=== PATIENT | male | born 1940 | race Caucasian/White ===

== ENCOUNTER 2018-11-03 23:55 | Emergency (ER) | payer MEDICARE, OTHER ==
[2018-11-04 00:50] LABS: BASOPHIL % 0.4 % (0.0-0.4); Basophil (Absolute #) 0.02 (0-0.4); Eosinophil % 3.7 % (0.00-5.0); Granulocyte Absolute (ANC) 3.39 (1.4-6.9); Granulocytes % 61.9 % (36.0-66.0); Hematocrit 36.8 % (42-50); Lymphocyte (Absolute #) 1.02 (1.0-4.6); Lymphocytes % 18.6 % (24.0-44.0); Mean Cell Volume 92.2 fl (78-100); Mean Corpuscular Hgb Concent. 32.6 g/dl (32-36); Mean Platelet Volume 9.7 fl (6-9.5); Monocyte (Absolute #) 0.84 (0.0-1.3); Monocytes % 15.4 % (0.0-12.0); Platelet Count 179 K/mm3 (150-450); Red Blood Count 3.99 M/mm3 (4.1-5.6); Red Cell Distribution Width 13.1 % (11.5-14.0); White Blood Count 5.5 K/mm3 (4.0-10.5)
[2018-11-04 00:58] LABS: INR 2.37 (0.8-3.0); PROTIME 27.8 SECONDS (8.83-12.87)
[2018-11-04 01:01] LABS: PTT 38.1 SECONDS (24.1-36.1)
[2018-11-04 01:02] LABS: ALBUMIN 3.8 g/dL (3.5-5.0); ANION GAP 11.1 MEQ/L (5-15); BILIRUBIN,TOTAL 0.3 mg/dL (0.2-1.3); Calcium 9.2 mg/dL (8.4-10.2); Creatinine 1 1.42 mg/dL (0.66-1.25); Potassium 4.2 mmol/L (3.5-5.1); Total Protein 6.9 g/dL (6.3-8.2)
--- NOTE | 2018-11-04 01:34 | ERPHSYRPT ---
- History of Present Illness Time Seen by Provider: 11/04/18 00:14 Source: patient Exam Limitations: no limitations Patient Subjective Stated Complaint: pt sttes he had teeth pulled 1 week ago on sunday and has had bleeding this evening that he cant get to stop Triage Nursing Assessment: pt alert and oriented, answers questions approp. pt ambulatoryw ith steady gait noted. respirations nonlabored. skin pink warm and dry. cot noted to lt upper gum. Physician History: Pt had tooth extraction 1 week ago, his left upper molar was removed. He was instructed to restart his Xarelto 2 days later. He started bleeding from the gum this afternoon. He denies severe bleeding, he stopped few times with pressure, but restarted again few hours ago. He denies any pain, fever, nausea, chest pain, other complaints. Timing/Duration: gradual onset Severity: mild ENT Location: dental Prearrival Treatment: no prearrival treatment Modifying Factors: Improves With: nothing Associated Symptoms: denies symptoms Allergies/Adverse Reactions: No Known Drug Allergies Allergy (Verified 11/04/18 00:13) Home Medications: Ascorbate Calcium [Vitamin C] 500 mg PO DAILY 01/13/14 [History] Aspirin 81 mg PO DAILY 01/13/14 [History] Calcium 600 mg PO DAILY 01/13/14 [History] Hydrocodone/APAP 10/325 mg [[place] 10/325 MG Tablet] 1 tab PO BID 01/13/14 [History] Lisinopril 20 mg PO DAILY 01/13/14 [History] Metoprolol Succinate [Toprol Xl] 25 mg PO DAILY 01/13/14 [History] Multivitamin [Multivitamins] 1 tab PO DAILY 01/13/14 [History] Naproxen 250 mg PO BID 01/13/14 [History] clonazePAM [Klonopin] 1 mg PO DAILY 01/13/14 [History] Hx Tetanus, Diphtheria Vaccination/Date Given: Yes Hx Influenza Vaccination/Date Given: No Hx Pneumococcal Vaccination/Date Given: No Immunizations Up to Date: Yes - Review of Systems Constitutional: No Symptoms Eyes: No Symptoms Ears, Nose, & Throat: Other (gum bleeding ( post extraction)) Respiratory: No Symptoms Cardiac: No Symptoms Abdominal/Gastrointestinal: No Symptoms Genitourinary Symptoms: No Symptoms Musculoskeletal: No Symptoms Skin: No Symptoms Neurological: No Symptoms All Other Systems: Reviewed and Negative - Past Medical History Pertinent Past Medical History: Yes Neurological History: No Pertinent History ENT History: No Pertinent History Cardiac History: Deep Vein Thrombosis, Hypertension Respiratory History: No Pertinent History Endocrine Medical History: No Pertinent History Musculoskeletal History: Arthritis GI Medical History: Colitis History: No Pertinent History Psycho-Social History: Anxiety Male Reproductive Disorders: No Pertinent History Other Medical History: ANKYLSOSIS SPONDIALYTIS. blood clot in lt leg yr ago - Past Surgical History Past Surgical History: Yes Neuro Surgical History: No Pertinent History Cardiac: No Pertinent History Respiratory: No Pertinent History Gastrointestinal: Cholecystectomy Genitourinary: No Pertinent History Musculoskeletal: No Pertinent History, Orthopedic Surgery Male Surgical History: No Pertinent History - Social History Smoking Status: Never smoker Exposure to second hand smoke: No Drug Use: none Patient Lives Alone: Yes - Nursing Vital Signs Nursing Vital Signs: Initial Vital Signs Temperature 97.7 F 11/04/18 00:02 Pulse Rate 85 11/04/18 00:02 Respiratory Rate 16 11/04/18 00:02 Blood Pressure 155/84 11/04/18 00:02 O2 Sat by Pulse Oximetry 99 11/04/18 00:02 Pain Scale Pain Intensity 0 - Physical Exam General Appearance: no apparent distress Eye Exam: bilateral eye: PERRL Nasal Exam: normal inspection Throat Exam: normal (left upper molar removed, there is slight bloody oozing from the socket, with a small clot in the bottom, no severe bleeding or ulceration. No edema.), pharynx normal Neck Exam: normal inspection, non-tender, supple, trachea midline, No JVD Cardiovascular/Respiratory Exam: chest non-tender, normal breath sounds, heart sounds normal, no JVD Abdominal Exam: non-tender Neurologic Exam: alert, oriented x 3, normal mood/affect Skin Exam: normal color, warm, dry SpO2 Interpretation: normal SpO2: 97 O2 Delivery: Room Air - Course Nursing assessment & vital signs reviewed: Yes Ordered Tests: Active Orders 24 hr Category Date Time Status CBC W DIFF Stat Lab 11/04/18 00:44 Completed CMP Stat Lab 11/04/18 00:44 Completed PROTIME WITH INR Stat Lab 11/04/18 00:44 Completed PTT Stat Lab 11/04/18 00:44 Completed Lab/Rad Data: Laboratory Result Diagrams 11/04/18 00:44 11/04/18 00:44 Laboratory Results 11/04/18 11/04/18 11/04/18 Range/Units 00:44 00:44 00:44 WBC 5.5 (4.0-10.5) K/mm3 RBC 3.99 L (4.1-5.6) M/mm3 Hgb 12.0 L (12.5-18.0) gm/dl Hct 36.8 L (42-50) % MCV 92.2 (78-100) fl MCH 30.0 (26-32) pg MCHC 32.6 (32-36) g/dl RDW 13.1 (11.5-14.0) % Plt Count 179 (150-450) K/mm3 MPV 9.7 H (6-9.5) fl Gran % 61.9 (36.0-66.0) % Eos # (Auto) 0.20 (0-0.5) Absolute Lymphs (auto) 1.02 (1.0-4.6) Absolute Monos (auto) 0.84 (0.0-1.3) Lymphocytes % 18.6 L (24.0-44.0) % Monocytes % 15.4 H (0.0-12.0) % Eosinophils % 3.7 (0.00-5.0) % Basophils % 0.4 (0.0-0.4) % Absolute Granulocytes 3.39 (1.4-6.9) Basophils # 0.02 (0-0.4) PT 27.8 H (8.83-12.87) SECONDS INR 2.37 (0.8-3.0) APTT 38.1 H (24.1-36.1) SECONDS Sodium 140 (137-145) mmol/L Potassium 4.2 (3.5-5.1) mmol/L Chloride 108 H (98-107) mmol/L Carbon Dioxide 25 (22-30) mmol/L Anion Gap 11.1 (5-15) MEQ/L BUN 26 H (9-20) mg/dL Creatinine 1.42 H (0.66-1.25) mg/dL Estimated GFR 51.4 ML/MIN Glucose 99 (74-106) mg/dL Calcium 9.2 (8.4-10.2) mg/dL Total Bilirubin 0.30 (0.2-1.3) mg/dL AST 21 (17-59) U/L ALT 15 (0-50) U/L Alkaline Phosphatase 50 (38-126) U/L Serum Total Protein 6.9 (6.3-8.2) g/dL Albumin 3.8 (3.5-5.0) g/dL - Progress Progress: improved Progress Note: 11/04/18 01:34 We stopped the bleeding with wet jose bag, and gauze pressure, pt is comfortable , denies any pain or difficulty breathing, will discharge him to keep pressure in bleeding area, when bleeding again and call his dentist in the morning. Counseled pt/family regarding: lab results, diagnosis, need for follow-up - Departure Departure Disposition: Home Clinical Impression: Gums, bleeding Condition: Stable Critical Care Time: No Referrals: MAURA LONDON MD [Primary Care Provider] - Instructions: Tooth Extraction (DC), Bleeding Gums (DC) Additional Instructions: Keep wet jose bag and gauze pressure on bleeding area as needed for bleeding, and follow up with your dentist today, return if severe pain, bleeding, vomiting or fever> 102 F!
[2018-11-04 02:31] VITALS: BP 138/76; PULSE 74; O2SAT 96
== END 2018-11-04 02:38 | disposition home or self-care (01) ==
LOC: ED 23:55
DX: K06.8 Other specified disorders of gingiva and edentulous alveolar ridge (principal); Z79.899 Other long term (current) drug therapy; Z86.718 Personal history of other venous thrombosis and embolism; F41.9 Anxiety disorder, unspecified; M19.90 Unspecified osteoarthritis, unspecified site
CPT/HCPCS: 36415; 80053; 85025; 85610; 85730; 99283

== ENCOUNTER 2021-05-21 20:04 | Emergency (ER) | payer MEDICARE, OTHER ==
[2021-05-21] MEDS ORDERED: Sodium Chloride 0.9% 500 ML 500 ML IV ONE ×2 (20:36→21:00)
[2021-05-21] MEDS ORDERED: Zofran 4 MG/2 ML VIAL IV ONE (20:37)
[2021-05-21] MEDS ORDERED: SUBLIMAZE 100 MCG/2 ML IV ONE (20:37)
[2021-05-21] MEDS ORDERED: Zofran 4 MG/2 ML VIAL ONE (20:59)
[2021-05-21] MEDS ORDERED: SUBLIMAZE 100 MCG/2 ML ONE (20:59)
[2021-05-21 21:06] LABS: Absolute Neutrophil Ct (ANC) 5.88 (1.4-6.9); BASOPHIL % 0.3 % (0.0-0.4); Basophil (Absolute #) 0.02 (0-0.4); Eosinophil % 3.5 % (0.00-5.0); Eosinophil (Absolute #) 0.28 (0-0.5); Hematocrit 41.5 % (42-50); Hemoglobin 13.8 gm/dl (12.5-18.0); Lymphocyte (Absolute #) 0.91 (1.0-4.6); Lymphocytes % 11.5 % (24.0-44.0); Mean Cell Volume 94.3 fl (78-100); Mean Corpuscular Hemoglobin 31.4 pg (26-32); Mean Corpuscular Hgb Concent. 33.3 g/dl (32-36); Mean Platelet Volume 9.4 fl (7.5-11.0); Monocyte (Absolute #) 0.82 (0.0-1.3); Monocytes % 10.4 % (0.0-12.0); Neutrophil % 74.3 % (36.0-66.0); Platelet Count 203 K/mm3 (150-450); Red Cell Distribution Width 12.2 % (11.5-14.0); White Blood Count 7.9 K/mm3 (4.0-10.5)
[2021-05-21 21:17] LABS: ANION GAP 11.6 MEQ/L (5-15); BILIRUBIN,TOTAL 0.5 mg/dL (0.2-1.3); Calcium 9.2 mg/dL (8.4-10.2); Creatinine 1 1.43 mg/dL (0.66-1.25); EST GLOMERULAR FILTRATION RATE 50.7 ML/MIN; Potassium 4.2 mmol/L (3.5-5.1); Total Protein 6.9 g/dL (6.3-8.2)
[2021-05-21 21:21] LABS: Appearance CLEAR (CLEAR); Bilirubin NEGATIVE (NEGATIVE); Blood NEGATIVE Ery/ul (0-5); Glucose NEGATIVE (NEGATIVE); Ketones NEGATIVE (NEGATIVE); Leukocyte Esterase NEGATIVE (NEGATIVE); Nitrite NEGATIVE (NEGATIVE); Protein,Urine Dip 30 (Negative); Specific Gravity 1.014 (1.005-1.025); Urobilinogen NEGATIVE mg/dL (0-1); WBC 0-2 /HPF (0-5)
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
[2021-05-21] MEDS ORDERED: Adacel Vial IM ONE ×2 (22:52→22:54)
[2021-05-21 22:58] VITALS: O2SAT 98
[2021-05-21 23:18] VITALS: BP 148/76; PULSE 98
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
== END 2021-05-21 23:07 | disposition home or self-care (01) ==
LOC: ED 20:04
DX: R10.12 Left upper quadrant pain (principal); M70.72 Other bursitis of hip, left hip; S20.212A Contusion of left front wall of thorax, initial encounter; V89.2XXA Person injured in unspecified motor-vehicle accident, traffic, initial encounter; Y93.89 Activity, other specified; Y92.89 Other specified places as the place of occurrence of the external cause
CPT/HCPCS: 36000; 36415; 71260; 74177; 80053; 81001; 83690; 84484; 85025; 90471; 90715; 93005; 96360; 96374; 96375; 99285; J2405; J3010

== ENCOUNTER 2022-07-21 17:22 | Emergency (ER) | payer MEDICARE, OTHER ==
--- NOTE | 2022-07-21 17:37 | ERPHSYRPT ---
- History of Present Illness Time Seen by Provider: 07/21/22 17:37 Source: patient Exam Limitations: no limitations Physician History: This is an 82-year-old white male patient of Dr. London who presents with high blood pressure reading for the last 2 days. He denies headache. He denies visual changes. Patient has been off his lisinopril/HCTZ until approximately 2 days ago when he started back on lisinopril 10 mg q. morning. He also takes metoprolol in the mornings as well. Patient called the pharmacy that he picks the prescriptions up and the pharmacist told the patient to take another 10 mg lisinopril orally. Patient denies chest pain and he denies shortness of breath. 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 He has not been coughing Timing/Duration: day(s) (2) Severity: mild (To moderate) Associated Symptoms: denies symptoms Allergies/Adverse Reactions: No Known Drug Allergies Allergy (Verified 07/21/22 17:38) Home Medications: Allopurinol 300 mg [Zyloprim 300 mg] 1 tab PO DAILY 07/21/22 [History] Colchicine 1 tab PO DAILY 07/21/22 [History] Hydrocodone/Acetaminophen [Hydrocodone-Acetamin 10-325 mg] 1 tab PO BID 07/21/22 [History] Latanoprost/Pf [Latanoprost 0.005% Eye Drop] 1 drop HS 07/21/22 [History] Lisinopril/Hydrochlorothiazide [Lisinopril-Hctz 10-12.5 mg Tab] 1 tab PO DAILY 07/21/22 [History] Metoprolol Succinate 50 mg [Toprol Xl 50 MG] 1 tab PO DAILY 07/21/22 [History] clonazePAM [Clonazepam] 1 tab PO DAILY 07/21/22 [History] Hx Tetanus, Diphtheria Vaccination/Date Given: No Hx Influenza Vaccination/Date Given: No Hx Pneumococcal Vaccination/Date Given: No Travel Risk - International Travel Have you traveled outside of the country in past 3 weeks: No - Coronavirus Screening Are you exhibiting any of the following symptoms?: No Close contact with a COVID-19 positive Pt in past 14-21 Days: No - Vaccine Status Have you recieved a Covid-19 vaccination: Yes [employer]: Pfizer - Vaccination Dates Date of 2cond Vaccination (if applicable): 08/2020 - Review of Systems Constitutional: No Symptoms Eyes: No Symptoms Ears, Nose, & Throat: No Symptoms Respiratory: No Symptoms Cardiac: No Symptoms Abdominal/Gastrointestinal: No Symptoms Genitourinary Symptoms: No Symptoms Musculoskeletal: No Symptoms Skin: No Symptoms Neurological: No Symptoms Psychological: Anxiety Endocrine: No Symptoms Hematologic/Lymphatic: No Symptoms Immunological/Allergic: No Symptoms All Other Systems: Reviewed and Negative - Past Medical History Pertinent Past Medical History: Yes Neurological History: No Pertinent History ENT History: No Pertinent History Cardiac History: Deep Vein Thrombosis, Hypertension Respiratory History: No Pertinent History Endocrine Medical History: No Pertinent History Musculoskeletal History: Arthritis GI Medical History: Colitis History: No Pertinent History Psycho-Social History: Anxiety Male Reproductive Disorders: No Pertinent History Other Medical History: ANKYLSOSIS SPONDIALYTIS. blood clot in lt leg yr ago - Past Surgical History Past Surgical History: Yes Neuro Surgical History: No Pertinent History Cardiac: No Pertinent History Respiratory: No Pertinent History Gastrointestinal: Cholecystectomy Genitourinary: No Pertinent History Musculoskeletal: No Pertinent History, Orthopedic Surgery Male Surgical History: No Pertinent History - Social History Smoking Status: Never smoker Exposure to second hand smoke: No Drug Use: none Patient Lives Alone: Yes - Nursing Vital Signs Nursing Vital Signs: Initial Vital Signs Temperature 98.1 F 07/21/22 17:38 Pulse Rate 107 H 07/21/22 17:38 Respiratory Rate 18 07/21/22 17:38 Blood Pressure 184/110 07/21/22 17:38 O2 Sat by Pulse Oximetry 98 07/21/22 17:38 Pain Scale Pain Intensity 0 - Physical Exam General Appearance: no apparent distress, alert, anxiety Eye Exam: PERRL/EOMI, eyes nml inspection Ears, Nose, Throat Exam: normal ENT inspection, moist mucous membranes Neck Exam: normal inspection, non-tender, supple, full range of motion Respiratory Exam: normal breath sounds, lungs clear, airway intact, No chest tenderness, No respiratory distress Cardiovascular Exam: tachycardia (Mild) Gastrointestinal/Abdomen Exam: soft, normal bowel sounds, No tenderness Rectal Exam: not done Back Exam: normal inspection, normal range of motion, No CVA tenderness, No vertebral tenderness Extremity Exam: normal inspection, normal range of motion, pelvis stable Neurologic Exam: alert, oriented x 3, cooperative, tape controlled machine stitcher II-XII nml as tested, normal mood/affect, nml cerebellar function, nml station & gait, sensation nml Skin Exam: normal color, warm, dry Lymphatic Exam: No adenopathy SpO2 Interpretation: normal O2 Delivery: Room Air - Course Nursing assessment & vital signs reviewed: Yes EKG Interpreted by Me: RATE (97), Sinus Rhythm, NORMAL INTERVALS, NORMAL QRS, Other (No acute ischemic changes on today's EKG. When compared to twelve-lead EKG dated 05/21/2021 there are no significant changes.) Ordered Tests: Active Orders 24 hr Category Date Time Status AMA [Release AMA] OM.NOW Care 07/21/22 19:37 Ordered EKG-ER Only STAT Care 07/21/22 17:54 Active IV Insertion STAT Care 07/21/22 17:54 Active Pulse Oximetry (ED) STAT Care 07/21/22 17:54 Active CBC W DIFF Stat Lab 07/21/22 18:15 Completed CMP Stat Lab 07/21/22 18:15 Completed MAGNESIUM Stat Lab 07/21/22 18:15 Completed NT PRO BNP Stat Lab 07/21/22 18:15 Completed TROPONIN Q4H Lab 07/21/22 18:15 Completed TROPONIN Q4H Lab 07/21/22 22:00 Ordered TROPONIN Q4H Lab 07/22/22 02:00 Ordered Medication Summary Discontinued Medications Generic Name Dose Route Start Last Admin Trade Name Freq PRN Reason Stop Dose Admin Labetalol HCl 10 mg 07/21/22 17:54 Labetalol Hcl 20 Mg/4 Ml Disp.Syringe IV 07/21/22 17:55 STAT ONE Lab/Rad Data: Laboratory Result Diagrams 07/21/22 18:15 07/21/22 18:15 Laboratory Results 07/21/22 07/21/22 07/21/22 Range/Units 18:15 18:15 18:15 WBC 9.5 (4.0-10.5) x10^3/uL RBC 3.99 L (4.1-5.6) x10^6/uL Hgb 12.6 (12.5-18.0) g/dL Hct 37.7 L (42-50) % MCV 94.5 (78-100) fL MCH 31.6 (26-32) pg MCHC 33.4 (32-36) g/dL RDW 13.8 (11.5-14.0) % Plt Count 209 (150-450) x10^3/uL MPV 9.5 (7.5-11.0) fL Gran % 75.8 H (36.0-66.0) % Immature Gran % (Auto) 0.4 (0.00-0.4) % Nucleat RBC Rel Count 0.0 (0.00-0.1) % Eos # (Auto) 0.15 (0-0.5) x10^3/uL Immature Gran # (Auto) 0.04 H (0.00-0.03) x10^3u/L Absolute Lymphs (auto) 1.14 (1.0-4.6) x10^3/uL Absolute Monos (auto) 0.93 (0.0-1.3) x10^3/uL Absolute Nucleated RBC 0.00 (0.00-0.01) x10^3u/L Lymphocytes % 12.0 L (24.0-44.0) % Monocytes % 9.8 (0.0-12.0) % Eosinophils % 1.6 (0.00-5.0) % Basophils % 0.4 (0.0-0.4) % Absolute Granulocytes 7.21 H (1.4-6.9) x10^3/uL Basophils # 0.04 (0-0.4) x10^3/uL Sodium 141 (137-145) mmol/L Potassium 4.0 (3.5-5.1) mmol/L Chloride 105 (98-107) mmol/L Carbon Dioxide 30 (22-30) mmol/L Anion Gap 9.5 (5-15) MEQ/L BUN 23 H (9-20) mg/dL Creatinine 1.03 (0.66-1.25) mg/dL Estimated GFR > 60.0 ML/MIN Glucose 131 H (74-106) mg/dL Calcium 9.1 (8.4-10.2) mg/dL Magnesium 1.6 (1.6-2.3) mg/dL Total Bilirubin 0.70 (0.2-1.3) mg/dL AST 44 (17-59) U/L ALT 27 (0-50) U/L Alkaline Phosphatase 78 (38-126) U/L Troponin I 1.380 H* (0.000-0.034) ng/mL NT-Pro-B Natriuret Pep 1290 (0-1800) pg/mL Serum Total Protein 7.6 (6.3-8.2) g/dL Albumin 3.9 (3.5-5.0) g/dL - Progress Progress: improved Progress Note: 07/21/22 19:38 Medical decision making: This patient has a significant elevated troponin. He states that he has not seen a roving teller in many years. He thinks it was a D r. Artie at the [facility] and he has retired. Patient states that he does not want to be admitted or transferred to a facility. He states he wants to "get through the holidays" then he will see his primary care doctor. He also stated that he does not have shortness of breath or chest pain at the time of this discharge. He was only concerned about his high blood pressure. Patient states that his is in [place] visiting family and that he will want her around before he goes into the hospital or is transferred to the hospital. Again, the patient states he has no chest pain at this time and he is not short of breath. His twelve-lead EKG today is unchanged from the twelve-lead EKG performed in April 2021. Patient understands there is a risk that he is having a evolving myocardial infarction. And he again is awake alert and oriented and understands that he could if he is discharged with an evolving and worsening myocardial infarction. He states that he will sign the AGAINST MEDICAL ADVICE form. He states that if his symptoms worsen, he will return to the emergency department. Counseled pt/family regarding: lab results, diagnosis - Departure Departure Disposition: AMA Clinical Impression: Hypertension, Elevated troponin I level Condition: Stable Critical Care Time: Yes Critical Care Time(excluding separately billable procedures): Critical 30-74 mins (40 minutes) Referrals: MAURA LONDON MD [Primary Care Provider] - Follow up/PCP as directed
[2022-07-21] MEDS ORDERED: TRANDATE 20 MG/4 ML SYRINGE IV ONE (17:54)
[2022-07-21 18:24] LABS: Absolute Neutrophil Ct (ANC) 7.21 x10^3/uL (1.4-6.9); Basophil (Absolute #) 0.04 x10^3/uL (0-0.4); Eosinophil % 1.6 % (0.00-5.0); Eosinophil (Absolute #) 0.15 x10^3/uL (0-0.5); Hematocrit 37.7 % (42-50); Hemoglobin 12.6 g/dL (12.5-18.0); Lymphocyte (Absolute #) 1.14 x10^3/uL (1.0-4.6); Mean Cell Volume 94.5 fL (78-100); Mean Corpuscular Hemoglobin 31.6 pg (26-32); Mean Corpuscular Hgb Concent. 33.4 g/dL (32-36); Mean Platelet Volume 9.5 fL (7.5-11.0); Monocyte (Absolute #) 0.93 x10^3/uL (0.0-1.3); Monocytes % 9.8 % (0.0-12.0); Neutrophil % 75.8 % (36.0-66.0); Platelet Count 209 x10^3/uL (150-450); Red Blood Count 3.99 x10^6/uL (4.1-5.6); Red Cell Distribution Width 13.8 % (11.5-14.0); White Blood Count 9.5 x10^3/uL (4.0-10.5)
[2022-07-21 18:44] LABS: ALBUMIN 3.9 g/dL (3.5-5.0); ALKALINE PHOSPHATASE 78 U/L (38-126); ANION GAP 9.5 MEQ/L (5-15); BLOOD UREA NITROGEN 23 mg/dL (9-20); CHLORIDE 105 mmol/L (98-107); Calcium 9.1 mg/dL (8.4-10.2); Carbon Dioxide 30 mmol/L (22-30); Creatinine 1 1.03 mg/dL (0.66-1.25); EST GLOMERULAR FILTRATION RATE > 60.0 ML/MIN; Glucose 131 mg/dL (74-106); MAGNESIUM 1.6 mg/dL (1.6-2.3); NT PRO BNP 1290 pg/mL (0-1800); SGOT/AST 44 U/L (17-59); SGPT/ALT 27 U/L (0-50); SODIUM 141 mmol/L (137-145); Total Protein 7.6 g/dL (6.3-8.2)
[2022-07-21 19:13] VITALS: BP 123/66; PULSE 91; O2SAT 93
== END 2022-07-21 20:04 | disposition left against medical advice (07) ==
LOC: ED 17:22
DX: I10 Essential (primary) hypertension (principal); R77.8 Other specified abnormalities of plasma proteins; E78.5 Hyperlipidemia, unspecified; Z79.891 Long term (current) use of opiate analgesic; Z79.01 Long term (current) use of anticoagulants; Z79.899 Other long term (current) drug therapy
CPT/HCPCS: 36000; 36415; 80053; 83735; 83880; 84484; 85025; 93005; 94760; 99284; 99291

== ENCOUNTER 2024-11-20 08:29 | Emergency (ER) | payer MEDICARE, OTHER ==
[2024-11-20 08:39] VITALS: TEMP 96.5
[2024-11-20] MEDS: Zofran 4 MG/2 ML VIAL IV ONE (08:52)
[2024-11-20] MEDS: Sodium Chloride 0.9% 1000 ML 1,000 ML IV SCH (08:52)
[2024-11-20] MEDS ORDERED: Zofran 4 MG/2 ML VIAL ONE (08:52)
[2024-11-20] MEDS ORDERED: Sodium Chloride 0.9% 1000 ML 1,000 ML ONE ×2 (08:52→10:38)
[2024-11-20] MEDS ORDERED: SUBLIMAZE 100 MCG/2 ML ONE (08:57)
--- NOTE | 2024-11-20 08:57 | ERPHSYRPT ---
- History of Present Illness Time Seen by Provider: 11/20/24 08:36 Historian: patient, family Exam Limitations: no limitations Patient Subjective Stated Complaint: Pt c/o of abdominal pain with N&V and diarrhea that began this morning but has felt likd he has a large knotted ball in his mid abdomen Triage Nursing Assessment: Pt brought to the ER by his , vitals wnl, rates pain as 10/10, pulses normal, skin p/c/d, reports pain in his abdomen since eating last night, N&V, diarrhea, pain with palpatation to the upper RQ, denies chest pain, no difficiculty breathing, doesn't appear to be in any distress Physician History: 84-year-old male with history of hypertension, DVT on Xarelto presented in the ER with complaints of generalized abdominal pain that started almost an hour after having dinner last night followed by multiple episodes of nonprojectile, nonbilious vomiting without hematemesis and also having loose watery stools. Patient reports cramping abdomen although her moderate intensity, aggravated with vomiting and diarrhea. Reports feeling weak fatigued tired and dehydrated. No fever or chills reported. No known sick contact. Allergies/Adverse Reactions: No Known Drug Allergies Allergy (Verified 11/20/24 08:39) Home Medications: Allopurinol 300 mg [Zyloprim 300 mg] 1 tab PO DAILY 07/21/22 [History] Colchicine 1 tab PO DAILY 07/21/22 [History] Hydrocodone/Acetaminophen [Hydrocodone-Acetamin 10-325 mg] 1 tab PO BID 07/21/22 [History] Latanoprost/Pf [Latanoprost 0.005% Eye Drop] 1 drop HS 07/21/22 [History] Lisinopril/Hydrochlorothiazide [Lisinopril-Hctz 10-12.5 mg Tab] 1 tab PO DAILY 07/21/22 [History] Metoprolol Succinate 50 mg [Toprol Xl 50 MG] 1 tab PO DAILY 07/21/22 [History] clonazePAM [Clonazepam] 1 tab PO DAILY 07/21/22 [History] Hx Tetanus, Diphtheria Vaccination/Date Given: No Hx Influenza Vaccination/Date Given: No Hx Pneumococcal Vaccination/Date Given: No Travel Risk - International Travel Have you traveled outside of the country in past 3 weeks: No - Emerging Infectious Disease Are you exhibiting symptoms associated with any current EIDs: Yes Symptoms: Abdominal Pain, Vomitting - Review of Systems Constitutional: Fatigue Eyes: No Symptoms Ears, Nose, & Throat: No Symptoms Respiratory: No Symptoms Cardiac: No Symptoms Abdominal/Gastrointestinal: Abdominal Pain, Nausea, Vomiting, Diarrhea Genitourinary Symptoms: No Symptoms Musculoskeletal: No Symptoms Skin: No Symptoms Neurological: No Symptoms Endocrine: No Symptoms Hematologic/Lymphatic: No Symptoms - Past Medical History Pertinent Past Medical History: Yes Neurological History: No Pertinent History ENT History: No Pertinent History Cardiac History: Deep Vein Thrombosis, Hypertension Respiratory History: No Pertinent History Endocrine Medical History: No Pertinent History Musculoskeletal History: Arthritis GI Medical History: Colitis History: No Pertinent History Psycho-Social History: Anxiety Male Reproductive Disorders: No Pertinent History Other Medical History: ANKYLSOSIS SPONDIALYTIS. blood clot in lt leg yr ago - Past Surgical History Past Surgical History: Yes Neuro Surgical History: No Pertinent History Cardiac: No Pertinent History Respiratory: No Pertinent History Gastrointestinal: Cholecystectomy Genitourinary: No Pertinent History Musculoskeletal: No Pertinent History, Orthopedic Surgery Male Surgical History: No Pertinent History Other Surgical History: Knee operation (Dr. Cesar) - Social History Smoking Status: Never smoker Exposure to second hand smoke: No Drug Use: none - Social Determinants of Health Will the patient participate in the screening: Yes Do you worry about a steady place to live?: No Do you have any problems with any of the following?: No known problems In the past 12 months,have you had to go without utilities?: No Transportation Issues: No Has anyone in your support network made you feel unsafe?: No Have you or anyone in your house had to go w/o enough food: No - Nursing Vital Signs Nursing Vital Signs: Initial Vital Signs Temperature 96.5 F 11/20/24 08:30 Pulse Rate 102 H 11/20/24 08:30 Respiratory Rate 22 11/20/24 08:30 Blood Pressure 102/59 11/20/24 08:30 O2 Sat by Pulse Oximetry 63 L 11/20/24 08:30 Pain Scale Pain Intensity 0 - Physical Exam General Appearance: no apparent distress, alert Eye Exam: PERRL/EOMI Ears, Nose, Throat Exam: normal ENT inspection Neck Exam: normal inspection, supple, full range of motion Respiratory Exam: normal breath sounds, lungs clear Cardiovascular Exam: regular rate/rhythm, normal heart sounds Gastrointestinal/Abdomen Exam: soft, normal bowel sounds, tenderness (mild to moderate), guarding (Mild), No rebound Back Exam: normal inspection, normal range of motion Extremity Exam: normal inspection, normal range of motion Neurologic Exam: alert, oriented x 3, cooperative Skin Exam: normal color SpO2 Interpretation: normal SpO2: 96 O2 Delivery: Room Air Ordered Tests: Active Orders 24 hr Category Date Time Status IV Insertion STAT Care 11/20/24 08:54 Completed NPO (ED) STAT Care 11/20/24 08:54 Completed ABDOMEN AND PELVIS W/0 CONTRAS [CT] Stat Exams 11/20/24 08:54 Completed CBC W DIFF Stat Lab 11/20/24 09:12 Completed CMP Stat Lab 11/20/24 09:12 Completed LIPASE Stat Lab 11/20/24 09:12 Completed Lactic Acid Stat Lab 11/20/24 08:54 Completed Lactic Acid Stat Lab 11/20/24 11:15 Completed UA W/RFX UR CULTURE Stat Lab 11/20/24 14:52 Completed Medication Summary Discontinued Medications Generic Name Dose Route Start Last Admin Trade Name Rubénq PRN Reason Stop Dose Admin Fentanyl Citrate 50 mcg 11/20/24 08:54 11/20/24 08:58 Fentanyl Citrate 100 Mcg/2 Ml* Vial IV 11/20/24 08:55 50 mcg STAT ONE Administration Fentanyl Citrate Confirm 11/20/24 08:57 Fentanyl Citrate 100 Mcg/2 Ml* Vial Administered 11/20/24 08:58 Dose 100 mcg .ROUTE .STK-MED ONE Sodium Chloride 1,000 mls @ 999 mls/hr 11/20/24 09:00 11/20/24 13:33 Sodium Chloride 0.9% 1000 Ml IV 12/20/24 08:59 Not Given .Q1H1M LAVINIA Piperacillin Sod/Tazobactam 100 mls @ 200 mls/hr 11/20/24 12:01 11/20/24 13:17 Sod 3.375 gm/ Sodium Chloride IV 11/20/24 12:30 Infused STAT ONE Infusion Sodium Chloride Confirm 11/20/24 12:33 Sodium Chloride 100ml Mini-Bag Plus Administered 11/20/24 12:34 Dose 100 mls @ ud IV .STK-MED ONE Sodium Chloride Confirm 11/20/24 08:52 Sodium Chloride 0.9% 1000 Ml Administered 11/20/24 08:53 Dose 1,000 mls @ ud .ROUTE .STK-MED ONE Sodium Chloride Confirm 11/20/24 10:38 Sodium Chloride 0.9% 1000 Ml Administered 11/20/24 10:39 Dose 1,000 mls @ ud .ROUTE .STK-MED ONE Ondansetron HCl 4 mg 11/20/24 08:50 11/20/24 08:52 Ondansetron Hcl 4 Mg/2 Ml Vial IV 11/20/24 08:51 4 mg STAT ONE Administration Ondansetron HCl Confirm 11/20/24 08:52 Ondansetron Hcl 4 Mg/2 Ml Vial Administered 11/20/24 08:53 Dose 4 mg .ROUTE .STK-MED ONE Piperacillin Sod/Tazobactam Sod Confirm 11/20/24 12:33 Piperacillin/Tazobactam Sodium 3.375 Gm Vial Administered 11/20/24 12:34 Dose 3.375 gm IV .STK-MED ONE Lab/Rad Data: Laboratory Result Diagrams 11/20/24 09:12 11/20/24 09:12 Laboratory Results 11/20/24 11/20/24 11/20/24 Range/Units 14:52 11:15 09:12 WBC (4.23-9.07) x10^3/uL RBC (4.63-6.08) x10^6/uL Hgb (13.7-17.5) g/dL Hct (40.1-51.0) % MCV (79.0-92.2) fL MCH (25.7-32.2) pg MCHC (32.3-36.5) g/dL RDW (11.6-14.4) % Plt Count (163-337) x10^3/uL MPV (9.4-12.4) fL Gran % (34.0-67.9) % Immature Gran % (Auto) (0.001-0.429) % Nucleat RBC Rel Count (0.00-0.2) % Eos # (Auto) (0.04-0.54) x10^3/uL Immature Gran # (Auto) (0.001-0.031) x10^3u/L Absolute Lymphs (auto) (1.32-3.57) x10^3/uL Absolute Monos (auto) (0.30-0.82) x10^3/uL Absolute Nucleated RBC (0.00-0.012) x10^3u/L Lymphocytes % (21.8-53.1) % Monocytes % (5.3-12.2) % Eosinophils % (0.8-7.0) % Basophils % (0.2-1.2) % Absolute Granulocytes (1.78-5.38) x10^3/uL Basophils # (0.01-0.08) x10^3/uL Sodium 141 (135-145) mmol/L Potassium 4.5 (3.5-5.1) mmol/L Chloride 100 (98-107) mmol/L Carbon Dioxide 23 (22-30) mmol/L Anion Gap 22.0 H (5-15) MEQ/L BUN 40 H (9-20) mg/dL Creatinine 1.71 H (0.66-1.25) mg/dL Estimated GFR 39.2 ML/MIN Glucose 231 H (74-106) mg/dL Lactic Acid 1.1 (0.4-2.0) Calcium 9.7 (8.4-10.2) mg/dL Total Bilirubin 4.70 H (0.2-1.3) mg/dL AST 112 H (17-59) U/L ALT 158 H (0-50) U/L Alkaline Phosphatase 218 H (38-126) U/L Serum Total Protein 8.6 H (6.3-8.2) g/dL Albumin 4.6 (3.5-5.0) g/dL Lipase 67238 H (23-300) U/L Urine Color Yellow (Yellow) Urine Appearance Clear (Clear) Urine pH 7.0 (4.6-8.0) Ur Specific [place] 1.010 (1.005-1.030) Urine Protein 100 A (Negative) Urine Glucose (UA) Negative (Negative) mg/dL Urine Ketones Negative (Negative) Urine Blood NHT (Negative) Urine Nitrite Negative (Negative) Urine Bilirubin Negative (Negative) Urine Urobilinogen 0.2 (0.2) mg/dL Ur Leukocyte Esterase Negative (Negative) U Hyaline Cast (Auto) NONE SEEN (0-2) /LPF Urine Microscopic RBC 0-2 (0-5) /HPF Urine Microscopic WBC 0-2 (0-5) /HPF Ur Epithelial Cells None Seen (None Seen) /HPF Urine Bacteria None Seen (None Seen) /HPF Urine Culture Reflexed NO (NO) Slides for Path Review 11/20/24 11/20/24 Range/Units 09:12 08:54 WBC 11.4 H (4.23-9.07) x10^3/uL RBC 4.14 L (4.63-6.08) x10^6/uL Hgb 13.1 L (13.7-17.5) g/dL Hct 38.8 L (40.1-51.0) % MCV 93.7 H (79.0-92.2) fL MCH 31.6 (25.7-32.2) pg MCHC 33.8 (32.3-36.5) g/dL RDW 14.5 H (11.6-14.4) % Plt Count 204 (163-337) x10^3/uL MPV 10.4 (9.4-12.4) fL Gran % 88.0 H (34.0-67.9) % Immature Gran % (Auto) 0.4 (0.001-0.429) % Nucleat RBC Rel Count 0.0 (0.00-0.2) % Eos # (Auto) 0.02 L (0.04-0.54) x10^3/uL Immature Gran # (Auto) 0.05 H (0.001-0.031) x10^3u/L Absolute Lymphs (auto) 0.57 L (1.32-3.57) x10^3/uL Absolute Monos (auto) 0.70 (0.30-0.82) x10^3/uL Absolute Nucleated RBC 0.00 (0.00-0.012) x10^3u/L Lymphocytes % 5.0 L (21.8-53.1) % Monocytes % 6.2 (5.3-12.2) % Eosinophils % 0.2 L (0.8-7.0) % Basophils % 0.2 (0.2-1.2) % Absolute Granulocytes 10.01 H (1.78-5.38) x10^3/uL Basophils # 0.02 (0.01-0.08) x10^3/uL Sodium (135-145) mmol/L Potassium (3.5-5.1) mmol/L Chloride (98-107) mmol/L Carbon Dioxide (22-30) mmol/L Anion Gap (5-15) MEQ/L BUN (9-20) mg/dL Creatinine (0.66-1.25) mg/dL Estimated GFR ML/MIN Glucose (74-106) mg/dL Lactic Acid 2.8 H (0.4-2.0) Calcium (8.4-10.2) mg/dL Total Bilirubin (0.2-1.3) mg/dL AST (17-59) U/L ALT (0-50) U/L Alkaline Phosphatase (38-126) U/L Serum Total Protein (6.3-8.2) g/dL Albumin (3.5-5.0) g/dL Lipase (23-300) U/L Urine Color (Yellow) Urine Appearance (Clear) Urine pH (4.6-8.0) Ur Specific [place] (1.005-1.030) Urine Protein (Negative) Urine Glucose (UA) (Negative) mg/dL Urine Ketones (Negative) Urine Blood (Negative) Urine Nitrite (Negative) Urine Bilirubin (Negative) Urine Urobilinogen (0.2) mg/dL Ur Leukocyte Esterase (Negative) U Hyaline Cast (Auto) (0-2) /LPF Urine Microscopic RBC (0-5) /HPF Urine Microscopic WBC (0-5) /HPF Ur Epithelial Cells (None Seen) /HPF Urine Bacteria (None Seen) /HPF Urine Culture Reflexed (NO) Slides for Path Review YES - Progress Progress: improved, pain not gone completely, re-examined Progress Note: 11/20/24 12:01 84-year-old is evaluated in the ER for abdominal pain with nausea vomiting and diarrhea since last night after dinner. He has diffuse tenderness with minimal guarding especially in the upper abdomen with no rebound tenderness. He is given fluids and symptomatic treatment, on reevaluation is feeling better. Workup showed white count of 11, stable H&H, chemistries with mild worsening of kidney function with a baseline of 1.0 and today is 1.7 with a gap of 22, glucose of 230s and total bili 4.7, ALT AST in 100s, ALP in 200s and has a lipase of 42,000's. Initial lactate was 2.8 which is improved to 1.1 after fluids. I have obtained CT abdomen pelvis without contrast which shows choledochal stones with no signs of necrotizing pancreatitis/pseudocyst or phlegmon's. I believe patient needs ERCP with stent placement and stone retrieval. No ERCP services are available in [place], I have called [facility] and have discussed with Dr. Monroe hospitalist, reviewed history, workup and agreed with transfer. Discussed the results of workup with patient and family and need for transfer for appropriate intervention which they understand and agree. Complexity of problems addressed: High acuity Complexity of data reviewed/analyzed: Extensive Risk of complication: High risk Discussed with Dr.: Other (Dr. Monroe hospitalist [facility]) Counseled pt/family regarding: lab results, diagnosis, need for follow-up, rad results Medical Desision Making - Discussion of managment Care discussed with:: hospitalist Reviewed:: Test results Agreed on:: Treatment plan Will see patient: in hospital - Diagnostic Testing Diagnostic test were ordered, analyzed, and reviewed by me: Yes Radiological Interpretation: Interpreted by me, Reviewed by me - Risk of complications The pt has a mod risk of morbidity or mortality based on: Need for prescription drug management The pt has a high risk of morbidity or mortality based on: Need for major surgery in patient with known risk factors, Decision regarding hospitilization or escalation of hosp level of care - Departure Departure Disposition: Transfer Clinical Impression: Acute pancreatitis due to calculus of common bile duct, Choledocholithiasis Condition: Stable Critical Care Time: Yes Critical Care Time(excluding separately billable procedures): Critical 30-74 mins Referrals: MAURA LONDON MD [Primary Care Provider, INTERNAL MEDICINE] - Follow up/PCP as directed
[2024-11-20] MEDS: SUBLIMAZE 100 MCG/2 ML IV ONE (08:58)
[2024-11-20 09:13] LABS: Absolute Neutrophil Ct (ANC) 10.01 x10^3/uL (1.78-5.38); BASOPHIL % 0.2 % (0.2-1.2); Basophil (Absolute #) 0.02 x10^3/uL (0.01-0.08); Eosinophil % 0.2 % (0.8-7.0); Eosinophil (Absolute #) 0.02 x10^3/uL (0.04-0.54); Hematocrit 38.8 % (40.1-51.0); Hemoglobin 13.1 g/dL (13.7-17.5); IMMATURE GRAN # 0.05 x10^3u/L (0.001-0.031); IMMATURE GRAN % 0.4 % (0.001-0.429); Lymphocyte (Absolute #) 0.57 x10^3/uL (1.32-3.57); Mean Cell Volume 93.7 fL (79.0-92.2); Mean Corpuscular Hemoglobin 31.6 pg (25.7-32.2); Mean Corpuscular Hgb Concent. 33.8 g/dL (32.3-36.5); Mean Platelet Volume 10.4 fL (9.4-12.4); Monocytes % 6.2 % (5.3-12.2); Platelet Count 204 x10^3/uL (163-337); Red Blood Count 4.14 x10^6/uL (4.63-6.08); Red Cell Distribution Width 14.5 % (11.6-14.4); White Blood Count 11.4 x10^3/uL (4.23-9.07)
[2024-11-20 09:28] LABS: ALBUMIN 4.6 g/dL (3.5-5.0); BILIRUBIN,TOTAL 4.7 mg/dL (0.2-1.3); Calcium 9.7 mg/dL (8.4-10.2); Creatinine 1 1.71 mg/dL (0.66-1.25); EST GLOMERULAR FILTRATION RATE 39.2 ML/MIN; Potassium 4.5 mmol/L (3.5-5.1); Total Protein 8.6 g/dL (6.3-8.2)
[2024-11-20 09:43] LABS: Slide Review 1 YES
--- NOTE | 2024-11-20 11:04 | XRAY ---
Indication: Pain and diarrhea. Multiple contiguous axial images obtained through the abdomen and pelvis without contrast. Comparison: May 21, 2021 Lung bases again demonstrates pulmonary emphysema with scattered fibrosis/scarring. No infiltrate or effusion. Heart not enlarged again with extensive scattered coronary calcifications. New small hiatal hernia. Noncontrasted stomach and bowel loops appear nonobstructed. Again previous cholecystectomy., Bile duct demonstrates new multiple small choledochal stones, largest 1.3 cm. There is subsequent common bile duct distention up to 3 cm with prominent biliary tree. New nonobstructing punctate calculus in each kidney. Stable bilateral renal cysts. No free fluid/air. Remaining liver, pancreas, spleen, adrenal glands, kidneys, ureters, and bladder are unremarkable for noncontrast exam. Osseous structures intact again with osteopenia, flowing osteophytes throughout spine, progressive worsening moderate right hip degenerative arthropathy, and grossly intact left total hip arthroplasty. Stable small fatty left inguinal hernia and incompletely visualized scrotal hydrocele. Impression: 1. New multiple choledochal stones with subsequent biliary distention. 2. New nonobstructing micro-calculus in each kidney and new small hiatal hernia. 3. Again chronic findings including pulmonary emphysema, pulmonary fibrosis/scarring, arteriosclerotic disease, bilateral renal cysts, chronic bony findings, fatty left inguinal hernia, and incompletely visualized scrotal hydrocele.
[2024-11-20 11:45] VITALS: O2SAT 96
[2024-11-20] MEDS ORDERED: PIPERACILLIN/TAZOBACTAM IV ONE (12:33)
[2024-11-20] MEDS ORDERED: Sodium Chloride 100ML MINI-BAG PLUS 100 ML IV ONE (12:33)
[2024-11-20] MEDS: PIPERACILLIN/TAZOBACTAM 3.375 GM in Sodium Chloride 100ML MINI-BAG PLUS 100 ML IV ONE (12:37)
[2024-11-20 14:52] VITALS: BP 116/74; PULSE 104; RESP 19
[2024-11-20 15:03] LABS: Appearance Clear (Clear); Bacteria None Seen /HPF (None Seen); Bilirubin Negative (Negative); Blood NHT (Negative); Epithelial Cells None Seen /HPF (None Seen); Glucose, Urine Negative (Negative); Hyaline Casts NONE SEEN /LPF (0-2); Ketones Negative (Negative); Leukocyte Esterase Negative (Negative); Nitrite Negative (Negative); Protein,Urine Dip 100 (Negative); RBC 0-2 /HPF (0-5); Urobilinogen 0.2 mg/dL (0.2); WBC 0-2 /HPF (0-5)
== END 2024-11-20 15:05 | disposition short-term general hospital (02) ==
LOC: ED 08:29
DX: K85.10 Biliary acute pancreatitis without necrosis or infection (principal); K80.50 Calculus of bile duct without cholangitis or cholecystitis without obstruction; R10.84 Generalized abdominal pain; R11.2 Nausea with vomiting, unspecified; R53.1 Weakness; I10 Essential (primary) hypertension; Z79.899 Other long term (current) drug therapy
CPT/HCPCS: 36415; 74176; 80053; 81001; 83605; 83690; 85025; 96365; 96374; 96375; 99285; J2405; J3010